=== PATIENT | female | born 1970 | race Two or more races ===

== ENCOUNTER 2025-01-07 14:29 | Outpatient (AMB) | payer MEDICAID, SELFPAY ==
--- NOTE | 2025-01-07 14:55 | PD.ORTHCLVIS ---
Vital signs 01/07/25 14:56 Height 1.57 m Height Method Stated Weight 85.02 kg Weight Measurement Method Standing Scale BMI 34.2 BP 130/88 H Blood Pressure Source Automatic Cuff Blood Pressure Location Left Upper Arm Position Sitting Respiration 19 Pulse 88 Pulse Source Monitor Temp 98.0 F Temp Source Temporal Artery Scan Pulse Oximetry (%) 97 Oxygen Delivery Method Room Air Med/Allergies Allergies & Medications Allergies No Known Allergies Allergy (Verified 01/07/25 14:57) Medication Reconciliation allopurinol 100 mg tablet 100 mg PO QDAY 01/07/25 [History Confirmed 01/07/25] amlodipine 10 mg tablet 10 mg PO QDAY 01/07/25 [History Confirmed 01/07/25] aspirin 81 mg tablet,delayed release (Adult Aspirin Regimen) 81 mg PO QDAY 01/07/25 [History Confirmed 01/07/25] atorvastatin 40 mg tablet 40 mg PO QDAY 01/07/25 [History Confirmed 01/07/25] celecoxib 100 mg capsule 100 mg PO BID 01/07/25 [History Confirmed 01/07/25] gabapentin 100 mg capsule 100 mg PO QDAY 01/07/25 [History Confirmed 01/07/25] losartan 100 mg tablet 100 mg PO QDAY 01/07/25 [History Confirmed 01/07/25] metformin 1,000 mg tablet 1,000 mg PO QDAY 01/07/25 [History Confirmed 01/07/25] omeprazole 40 mg capsule,delayed release 40 mg PO QDAY 01/07/25 [History Confirmed 01/07/25] Exam Exam Patient is in no acute distress and is cooperative with the examination today. Breathing is nonlabored. In no respiratory distress. Bilateral extremities were evaluated and demonstrates sensation intact to light touch. Palpable pedal pulses are present. No significant edema is present. Bilateral hips were examined. The patient has no pain with log roll of the hips. Internal rotation to 30 degrees and external rotation to 30 degrees is painless. Negative FADIR. The left knee was examined. The left knee is in varus alignment. Range of motion from 0-115 degrees. Knee is stable to varus and valgus as well as AP translation with <5mm. Patient has a negative McMurrays. There is no pain with patellofemoral compression and no crepitus noted. The knee is tender to palpation medially. The right knee was also examined. The right knee is in varus alignment. Range of motion from 0-120 degrees. Knee is stable to varus and valgus as well as AP translation with <5mm. Patient has a negative McMurrays. There is no pain with patellofemoral compression and no crepitus noted. The knee is tender to palpation medially. Assessment and Plan Problem List (1) Degenerative arthritis of knee, bilateral: Status: Acute Plan: Patient is a pleasant 54-year-old female with bilateral knee pain and bilateral knee arthritis. We discussed nonoperative and operative options Including anti-inflammatories, injections. She is tried significant surgery treatment. I would like to get new x-rays that are weightbearing. We discussed different treatment options depending on what that shows. She is exhausted conservative treatment Office Procedures GNS Level of Care Nursing/Assessment Patient Status: Initial/New Patient Nursing Assessment/Reassesment: Medication Reconciliation, Update PMH in EMR and Vital Signs Coordination of Care: Complex Care and Chronic Disease 1-5, Education Complex Pt/Fam, Consent,records obtained, informed consent, 1 Ins Authorization, Lab and Imaging orders, Results/Orders obtained and Staff clarify orders Special Needs: Language special needs New Patient Charge New Patient Point Assignment: 1124 New Patient Point Charge: OPERATIONS SUPPORT ANALYST Level 4 ([id number]) MA Intake Visit Data Collection New Patient or Established: New Patient (never been to [facility]) Reason for Visit:: RIGHT KNEE PAIN Seen by Clinical Staff ONLY (RN/MA): No Retail Merchandising Manager Required: No PCP or OBGYN visit in last 3 months: Yes Hx Now: No Do You Feel Safe at Home: Yes Authorities Contacted: N/A Questionairres Past Medical History Past Medical History Have you ever been diagnosed with any of the following: Cardiology Problems Hypercholesterolemia: Yes Hypertension: Yes Endocrine Problems Diabetes Mellitus Type 1: Yes Hyperthyroidism: Yes Subjective Visit Visit for: new patient and knee Immunization / Flu Flu Vaccine in the Last 12 Months: Yes Flu Vaccine Exclusion Criteria: Already Received History of Present Illness Chief complaint: Bilateral knee pain worse on the right Patient is a pleasant 54-year-old female with right knee pain and severe right knee arthritis according the report. The right knee pain has been bothering her for more than a year. She has tried over 3 injections as well as anti-inflammatories and formal physical therapy. Last injections worked less than a week. She is using a cane because of the pain. Pain Pain level (0-10): 10 Pain duration: ALL DAY Pain location: inside (medial), anterior and posterior Pain quality: sharp, dull and aching Pain timing: night, increases with activity and stairs Associated signs & symptoms: numbness Ambulatory data Ambulatory device: cane Treatments Number of previous injections: 3 Improvement with previous injections: No Number of Physical Therapy sessions: 12 Improvement with PT: No Improvement with NSAIDS: no Review of Systems Review of Systems: All systems negative unless otherwise noted in HPI.
[2025-01-07 14:56] VITALS: BP 130/88; PULSE 88; RESP 19; TEMP 36.7; O2SAT 97; BMI 34.2
== END 2025-01-07 15:02 | disposition home or self-care (01) ==
PROVIDERS: PCP Family Medicine; Referring Provider Family Medicine; Supervising Provider Orthopaedic Surgery Adult Reconstructive Orthopaedic Surgery; Visit Provider Orthopaedic Surgery Adult Reconstructive Orthopaedic Surgery
DX: M17.0 Bilateral primary osteoarthritis of knee (principal); M25.562 Pain in left knee; M25.561 Pain in right knee; I10 Essential (primary) hypertension; E78.00 Pure hypercholesterolemia, unspecified; E10.9 Type 1 diabetes mellitus without complications
CPT/HCPCS: 99204; G0463

== ENCOUNTER 2025-01-16 11:04 | Outpatient (AMB) | payer MEDICAID, SELFPAY ==
--- NOTE | 2025-01-16 10:55 | PD.ORTHTELE ---
Med/Allergies Allergies & Medications Allergies No Known Allergies Allergy (Verified 01/16/25 10:56) Medication Reconciliation allopurinol 100 mg tablet 100 mg PO QDAY 01/07/25 [History Confirmed 01/16/25] amlodipine 10 mg tablet 10 mg PO QDAY 01/07/25 [History Confirmed 01/16/25] aspirin 81 mg tablet,delayed release (Adult Aspirin Regimen) 81 mg PO QDAY 01/07/25 [History Confirmed 01/16/25] atorvastatin 40 mg tablet 40 mg PO QDAY 01/07/25 [History Confirmed 01/16/25] celecoxib 100 mg capsule 100 mg PO BID 01/07/25 [History Confirmed 01/16/25] gabapentin 100 mg capsule 100 mg PO QDAY 01/07/25 [History Confirmed 01/16/25] losartan 100 mg tablet 100 mg PO QDAY 01/07/25 [History Confirmed 01/16/25] metformin 1,000 mg tablet 1,000 mg PO QDAY 01/07/25 [History Confirmed 01/16/25] omeprazole 40 mg capsule,delayed release 40 mg PO QDAY 01/07/25 [History Confirmed 01/16/25] Subjective Visit Visit for: follow up visit, knee (BILATERAL) and x-rays Immunization / Flu Flu Vaccine in the Last 12 Months: No Flu Vaccine Exclusion Criteria: No Exclusion Criteria History of Present Illness Chief complaint: right knee osteoarthritis Patient is a 54-year-old female with right knee pain and right knee arthritis. She has had multiple injections in the past. They were only working for 1 week or less. She would thus like to consider total knee replacement. She is here for x-ray results Pain Pain level (0-10): 5 Pain duration: CONSTANT Pain location: inside (medial) and anterior Pain quality: aching Pain timing: increases with activity Associated signs & symptoms: numbness and weakness Ambulatory data Ambulatory device: none Treatments Improvement with previous injections: No Improvement with PT: No Improvement with NSAIDS: no Review of Systems Review of Systems: All systems negative unless otherwise noted in HPI. Assessment and Plan Problem List (1) Degenerative arthritis of knee, bilateral: Status: Acute Plan: Patient is a pleasant 54-year-old female with bilateral knee pain and bilateral knee arthritis. We discussed nonoperative and operative options Including anti-inflammatories, injections. She has tried significant surgery treatment. X-rays demonstrate significant arthritis with complete obliteration of the medial joint space. This is from [facility]. We thus Discussed total knee replacement is a reasonable option. I will see her In person for surgical discussion. Office Procedures GNS Level of Care Nursing/Assessment Patient Status: Established Patient Nursing Assessment/Reassesment: Medication Reconciliation, Update PMH in EMR and Vital Signs Coordination of Care: Complex Care and Chronic Disease 1-5, Education Complex Pt/Fam, Consent,records obtained, informed consent, Results/Orders obtained and Staff clarify orders Special Needs: Language special needs Established Patient Charge Established Patient Point Assignment: 95 Telehealth Telemed Phone/Video with patient at home & Dr,PA,PACKAGE LINE RELIEF OPERATOR: Yes
== END 2025-01-16 11:04 | disposition home or self-care (01) ==
LOC: HODSRG 11:04
PROVIDERS: PCP Family Medicine; Referring Provider Family Medicine; Supervising Provider Orthopaedic Surgery Adult Reconstructive Orthopaedic Surgery; Visit Provider Orthopaedic Surgery Adult Reconstructive Orthopaedic Surgery
DX: M17.0 Bilateral primary osteoarthritis of knee (principal); M25.562 Pain in left knee; M25.561 Pain in right knee
CPT/HCPCS: 99212; G0463

== ENCOUNTER 2025-02-04 15:02 | Outpatient (AMB) | payer MEDICAID, SELFPAY ==
[2025-02-04 15:41] VITALS: BP 121/82; PULSE 88; RESP 18; TEMP 36.4; O2SAT 95; BMI 34.2
--- NOTE | 2025-02-04 15:41 | PD.ORTHCLVIS ---
Vital signs 02/04/25 15:41 Height 1.57 m Height Method Stated Weight 84.397 kg Weight Measurement Method Standing Scale BMI 34.2 BP 121/82 Blood Pressure Source Automatic Cuff Blood Pressure Location Left Upper Arm Position Sitting Respiration 18 Pulse 88 Pulse Source Monitor Temp 97.6 F Temp Source Temporal Artery Scan Pulse Oximetry (%) 95 Oxygen Delivery Method Room Air Med/Allergies Allergies & Medications Allergies No Known Allergies Allergy (Verified 02/04/25 15:45) Medication Reconciliation allopurinol 100 mg tablet 100 mg PO QDAY 01/07/25 [History Confirmed 02/04/25] amlodipine 10 mg tablet 10 mg PO QDAY 01/07/25 [History Confirmed 02/04/25] aspirin 81 mg tablet,delayed release (Adult Aspirin Regimen) 81 mg PO QDAY 01/07/25 [History Confirmed 02/04/25] atorvastatin 40 mg tablet 40 mg PO QDAY 01/07/25 [History Confirmed 02/04/25] celecoxib 100 mg capsule 100 mg PO BID 01/07/25 [History Confirmed 02/04/25] gabapentin 100 mg capsule 100 mg PO QDAY 01/07/25 [History Confirmed 02/04/25] losartan 100 mg tablet 100 mg PO QDAY 01/07/25 [History Confirmed 02/04/25] metformin 1,000 mg tablet 1,000 mg PO QDAY 01/07/25 [History Confirmed 02/04/25] omeprazole 40 mg capsule,delayed release 40 mg PO QDAY 01/07/25 [History Confirmed 02/04/25] Exam Exam Patient is in no acute distress and is cooperative with the examination today. Breathing is nonlabored. In no respiratory distress. Bilateral extremities were evaluated and demonstrates sensation intact to light touch. Palpable pedal pulses are present. No significant edema is present. Bilateral hips were examined. The patient has no pain with log roll of the hips. Internal rotation to 30 degrees and external rotation to 30 degrees is painless. Negative FADIR. The left knee was examined. The left knee is in varus alignment. Range of motion from 0-115 degrees. Knee is stable to varus and valgus as well as AP translation with <5mm. Patient has a negative McMurrays. There is no pain with patellofemoral compression and no crepitus noted. The knee is tender to palpation medially. The right knee was also examined. The right knee is in varus alignment. Range of motion from 0-120 degrees. Knee is stable to varus and valgus as well as AP translation with <5mm. Patient has a negative McMurrays. There is no pain with patellofemoral compression and no crepitus noted. The knee is tender to palpation medially. Patient has weightbearing x-rays from [facility]. The reports is there is mild arthritis. She she has moderate to severe arthritis with significant joint space narrowing. This is medial and there is varus deformity. Assessment and Plan Problem List (1) Degenerative arthritis of knee, bilateral: Status: Acute Plan: Patient is a pleasant 54-year-old female with bilateral knee pain and bilateral knee arthritis. We discussed nonoperative and operative options Including anti-inflammatories, injections. She has tried significant surgery treatment. X-rays demonstrate significant arthritis with complete obliteration of the medial joint space. This is from [facility]. We discussed total knee replacement as a possible option. We will do 1 more cortisone injection we will get new x-rays. Should this fail, I would recommend a total knee replacement Office Procedures GNS Level of Care Nursing/Assessment Patient Status: Established Patient Nursing Assessment/Reassesment: Medication Reconciliation, Update PMH in EMR and Vital Signs Coordination of Care: Complex Care and Chronic Disease 1-5, Education Complex Pt/Fam, Consent,records obtained, informed consent, Results/Orders obtained and Staff clarify orders Special Needs: Language special needs Established Patient Charge Established Patient Point Assignment: 95 Established Patient Point Charge: EP Level 3 (80-115) Surgical Proc/IM SQ injection Major Surgical Procedure: Yes (KNEE INJECTION) Medication Given Medication Given Medication Given: Yes Documented Dose Given: 4 Route: Infiitration Medication Given Medication Given Medication Given: Yes Documented Dose Given: 1 Route: Infiitration Office Meds Xylocaine 10 mg/mL (1 %) injection solution Performing Provider: Bob More MD Performing Location: [facility] Administered by: Bob More MD on 02/04/25 15:47 Dose Route Admin Location Dispensed Lot Number Expiration Date [facility] Commercial Management Accountant 20 mL Infiltration 20 mL [id number] 03/26/28 12822-808-70 FRESENIUS KABI triamcinolone acetonide 40 mg/mL suspension for injection Performing Provider: Bob More MD Performing Location: [facility] Administered by: Bob More MD on 02/04/25 15:47 Dose Route Admin Location Dispensed Lot Number Expiration Date [facility] Commercial Management Accountant 40 mg intra-articular KNEE 1 mL [id number] 04/25/26 2542-4883-05 TEVA PARENTERAL MA Intake Visit Data Collection New Patient or Established: Established Patient (seen at [facility] within 3 years) Reason for Visit:: KNEE PAIN/REQ INJECTION Seen by Clinical Staff ONLY (RN/MA): No Identity Management Consultant Required: Yes PCP or OBGYN visit in last 3 months: Yes Hx Now: No Do You Feel Safe at Home: Yes Authorities Contacted: N/A Questionairres Past Medical History Past Medical History Have you ever been diagnosed with any of the following: Cardiology Problems Hypercholesterolemia: Yes Hypertension: Yes Respiratory Problems Smoking: No Smoking Exposure: No Endocrine Problems Diabetes Mellitus Type 1: Yes Hyperthyroidism: Yes Subjective Visit Visit for: follow up visit and knee Immunization / Flu Flu Vaccine in the Last 12 Months: Yes Flu Vaccine Exclusion Criteria: Already Received History of Present Illness Chief complaint: Bilateral knee pain worse on the right Patient is a pleasant 54-year-old female with right knee pain and severe right knee arthritis according to the report. The right knee pain has been bothering her for more than a year. She has tried over 5 injections as well as anti-inflammatories and formal physical therapy. She is exhausted conservative treatment at this point. We will try another right knee injection. She has also tried Voltaren and oral anti-inflammatories. Pain Pain level (0-10): 9 Pain duration: ALL DAY Pain location: inside (medial), anterior and posterior Pain quality: sharp, dull and aching Pain timing: night, increases with activity and stairs Associated signs & symptoms: numbness Ambulatory data Ambulatory device: cane Treatments Number of previous injections: 3 Improvement with previous injections: No Number of Physical Therapy sessions: 12 Improvement with PT: No Improvement with NSAIDS: no Review of Systems Review of Systems: All systems negative unless otherwise noted in HPI.
== END 2025-02-04 15:56 | disposition home or self-care (01) ==
LOC: HODSRG 15:02
PROVIDERS: PCP Family Medicine; Referring Provider Family Medicine; Supervising Provider Orthopaedic Surgery Adult Reconstructive Orthopaedic Surgery; Visit Provider Orthopaedic Surgery Adult Reconstructive Orthopaedic Surgery
DX: M17.0 Bilateral primary osteoarthritis of knee (principal); E78.00 Pure hypercholesterolemia, unspecified; I10 Essential (primary) hypertension
CPT/HCPCS: 20610; 99213; J3301; J3490; G0463

== ENCOUNTER 2025-05-13 14:57 | Outpatient (AMB) | payer MEDICAID, SELFPAY ==
--- NOTE | 2025-05-13 15:07 | ORTHONT_ITS ---
Vital signs 05/13/25 15:08 Height 1.57 m Height Method Stated Weight 79.974 kg Weight Measurement Method Standing Scale BMI 32.4 BP 145/87 H Blood Pressure Source Automatic Cuff Blood Pressure Location Right Upper Arm Position Sitting Respiration 18 Pulse 84 Pulse Source Monitor Temp 97.3 F Temp Source Temporal Artery Scan Pulse Oximetry (%) 97 Oxygen Delivery Method Room Air Med/Allergies Allergies & Medications Allergies No Known Allergies Allergy (Verified 05/13/25 15:09) Medication Reconciliation allopurinol 100 mg tablet 100 mg PO QDAY 01/07/25 [History Confirmed 05/13/25] amlodipine 10 mg tablet 10 mg PO QDAY 01/07/25 [History Confirmed 05/13/25] aspirin 81 mg tablet,delayed release (Adult Aspirin Regimen) 81 mg PO QDAY 01/07/25 [History Confirmed 05/13/25] atorvastatin 40 mg tablet 40 mg PO QDAY 01/07/25 [History Confirmed 05/13/25] celecoxib 100 mg capsule 100 mg PO BID 01/07/25 [History Confirmed 05/13/25] gabapentin 100 mg capsule 100 mg PO QDAY 01/07/25 [History Confirmed 05/13/25] losartan 100 mg tablet 100 mg PO QDAY 01/07/25 [History Confirmed 05/13/25] metformin 1,000 mg tablet 1,000 mg PO QDAY 01/07/25 [History Confirmed 05/13/25] omeprazole 40 mg capsule,delayed release 40 mg PO QDAY 01/07/25 [History Confirmed 05/13/25] Exam Exam Patient is in no acute distress and is cooperative with the examination today. Breathing is nonlabored. In no respiratory distress. Bilateral extremities were evaluated and demonstrates sensation intact to light touch. Palpable pedal pulses are present. No significant edema is present. Bilateral hips were examined. The patient has no pain with log roll of the hips. Internal rotation to 30 degrees and external rotation to 30 degrees is painless. Negative FADIR. The left knee was examined. The left knee is in varus alignment. Range of motion from 0-115 degrees. Knee is stable to varus and valgus as well as AP translation with <5mm. Patient has a negative McMurrays. There is no pain with patellofemoral compression and no crepitus noted. The knee is tender to palpation medially. The right knee was also examined. The right knee is in varus alignment. Range of motion from 0-120 degrees. Knee is stable to varus and valgus as well as AP translation with <5mm. Patient has a negative McMurrays. There is no pain with patellofemoral compression and no crepitus noted. The knee is tender to palpation medially. Patient has weightbearing x-rays from [facility]. The reports is there is mild arthritis. She she has moderate to severe arthritis with significant joint space narrowing. This is medial and there is varus deformity. Assessment and Plan Problem List (1) Degenerative arthritis of knee, bilateral: Status: Acute Plan: Patient is a pleasant 54-year-old female with bilateral knee pain and bilateral knee arthritis. We discussed nonoperative and operative options Including anti- inflammatories, injections. She has tried significant surgery treatment. X- rays demonstrate significant arthritis with complete obliteration of the medial joint space. This is from [facility]. We discussed total knee replacement as a possible option. We will do 1 more cortisone injection we will get new x-rays. Should this fail, I would recommend a total knee replacement Recommend knee cortisone injection as patient would like to proceed with conservative treatment at this time. The risks and benefits of the procedure were reviewed with the patient and patient gave verbal consent to continue with the procedure. Procedure: performed by Dr. More Using sterile technique the Right knee was thoroughly prepped with alcohol, and approximately 1 cc of Kenalog 40 mg/mL and 4 cc of 1% lidocaine was injected without resistance into the medial tibial femoral joint space. The patient tolerated the procedure. Office Procedures GNS Level of Care Nursing/Assessment Patient Status: Established Patient Nursing Assessment/Reassesment: Medication Reconciliation, Update PMH in EMR and Vital Signs Coordination of Care: Complex Care and Chronic Disease 1-5, Education Complex Pt/Fam, Consent,records obtained, informed consent, Lab and Imaging orders, Results/Orders obtained and Staff clarify orders Special Needs: Language special needs Established Patient Charge Established Patient Point Assignment: 110 Established Patient Point Charge: EP Level 3 (80-115) Surgical Proc/IM SQ injection Major Surgical Procedure: Yes (KNEE INJECTION) Medication Given Medication Given Medication Given: Yes Documented Dose Given: 4 Route: Infiitration Medication Given Medication Given Medication Given: Yes Documented Dose Given: 1 Route: Infiitration Office Meds Xylocaine 10 mg/mL (1 %) injection solution Performing Provider: Bob More MD Performing Location: [facility] Administered by: Bob More MD on 05/13/25 15:36 Dose Route Admin Location Dispensed Lot Number Expiration Date [facility] Territory Account Manager 20 mL Infiltration 20 mL [id number] 03/26/28 69449-119-63 FREDDY BOSS triamcinolone acetonide 40 mg/mL suspension for injection Performing Provider: Bob More MD Performing Location: [facility] Administered by: Bob More MD on 05/13/25 15:36 Dose Route Admin Location Dispensed Lot Number Expiration Date [facility] Territory Account Manager 40 mg intra-articular KNEE 1 mL [id number] 06/25/26 31964-717-65 GRETCHEN JADE MA Intake Visit Data Collection New Patient or Established: Established Patient (seen at [facility] within 3 years) Reason for Visit:: KNEE INJECTION Seen by Clinical Staff ONLY (RN/MA): No Verbal consent obtained for Telemed visit?: No Nuclear Design Engineer Required: Yes PCP or OBGYN visit in last 3 months: No Hx Now: No Do You Feel Safe at Home: Yes Authorities Contacted: N/A Questionairres Past Medical History Past Medical History Have you ever been diagnosed with any of the following: Cardiology Problems Hypercholesterolemia: Yes Hypertension: Yes Respiratory Problems Smoking: No Smoking Exposure: No Endocrine Problems Diabetes Mellitus Type 1: Yes Hyperthyroidism: Yes Subjective Visit Visit for: follow up visit, knee and injections Immunization / Flu Flu Vaccine in the Last 12 Months: No Flu Vaccine Exclusion Criteria: No Exclusion Criteria History of Present Illness Chief complaint: KNEE INJECTION Patient is a pleasant 54-year-old female with right knee pain and severe right knee arthritis according to the report. The right knee pain has been bothering her for more than a year. She has tried over 5 injections as well as anti- inflammatories and formal physical therapy. She is exhausted conservative treatment at this point. We will try another right knee injection. She has also tried Voltaren and oral anti-inflammatories. Personal History Occupation: DISABLED Red flag PMH: BMI BMI Counceling provided: Yes Pain Pain level (0-10): 10 Pain duration: ALL DAY Pain location: inside (medial), outside (lateral), anterior and posterior Pain quality: sharp, dull, aching and burning Pain timing: night, increases with activity and stairs Associated signs & symptoms: none Ambulatory data Ambulatory device: none Treatments Number of previous injections: 3 Improvement with previous injections: No Number of Physical Therapy sessions: 12 Improvement with PT: No Improvement with NSAIDS: no Review of Systems Review of Systems: All systems negative unless otherwise noted in HPI.
[2025-05-13 15:08] VITALS: BP 145/87; PULSE 84; RESP 18; TEMP 36.3; O2SAT 97; BMI 32.4
--- NOTE | 2025-05-13 15:29 | XR_ITS ---
Examination: Bilateral AP knees single view PA lateral axial right knee 3 views TECHNIQUE: Bilateral AP knees standing single view Upright PA right knee flexion, lateral right knee standing, axial right knee 3 views total 4 views Date and time: May 13, 2025 at 1543 hours INDICATIONS: Right knee swelling 1 year. FINDINGS: Advanced narrowing medial joint space right knee Advanced osteoarthritis right patellofemoral joint Small knee effusion No fracture Advanced narrowing medial joint space left knee IMPRESSION: Advanced narrowing medial joint space right knee Advanced osteoarthritis right patellofemoral joints
== END 2025-05-13 15:34 | disposition home or self-care (01) ==
PROVIDERS: PCP Family Medicine; Referring Provider Family Medicine; Supervising Provider Orthopaedic Surgery Adult Reconstructive Orthopaedic Surgery; Visit Provider Orthopaedic Surgery Adult Reconstructive Orthopaedic Surgery
DX: M17.0 Bilateral primary osteoarthritis of knee (principal); M25.562 Pain in left knee; M25.561 Pain in right knee; I10 Essential (primary) hypertension; E78.00 Pure hypercholesterolemia, unspecified; E10.9 Type 1 diabetes mellitus without complications
CPT/HCPCS: 20610; 73564; 99213; J3301; J3490; G0463